=== PATIENT | male | born 1940 | race Caucasian/White ===

== ENCOUNTER → 2018-01-15 | Outpatient (CLI) | payer MEDICARE ==
[~2018-01-15] MED LIST: FINA5TAB4 PO; MUPI15CR9 TP
== END | disposition home or self-care (01) ==
LOC: STAR 08:12
PROVIDERS: ATTEND Urology
DX: Z01.818 Encounter for other preprocedural examination (principal); R33.9 Retention of urine, unspecified; Z87.891 Personal history of nicotine dependence
CPT/HCPCS: 93005

== ENCOUNTER 2018-01-30 05:37 | Inpatient (IN) | payer MEDICARE ==
[~2018-01-30] VITALS: Ht 177.8 cm; Wt 94.5 kg
[2018-01-30] MEDS ORDERED: LACTATED RINGERS 1,000 ML IV SCH (07:46)
[2018-01-30] MEDS ORDERED: CIPROFLOXACIN/PMX 400MG/200ML 200 ML ONE (07:58)
[2018-01-30 08:56] LABS: MICROSCOPIC INDICATED
[2018-01-30] MEDS ORDERED: FENTANYL PF 100 MCG/2ML ONE ×3 (09:25→12:24)
[2018-01-30] MEDS ORDERED: KETOROLAC 30 MG/1 ML ONE (09:25)
[2018-01-30] MEDS ORDERED: CEFAZOLIN 1,000 MG ONE (09:46)
[2018-01-30] MEDS ORDERED: PROPOFOL 10 MG/ML, 20ML ONE (09:46)
[2018-01-30] MEDS ORDERED: DEXAMETHASONE 4 MG/ML, 1ML ONE (09:46)
[2018-01-30] MEDS ORDERED: ONDANSETRON 2MG/ML, 2ML ONE (09:46)
[2018-01-30] MEDS ORDERED: FENTANYL PF 100 MCG/2ML IV PRN (10:00)
[2018-01-30] MEDS ORDERED: OXYcodone 5 MG/5 ML ORAL.SOL UDC PO PRN (10:00)
[2018-01-30] MEDS ORDERED: HYDROmorphone 1 MG/ML, 1ML IV PRN (10:00)
[2018-01-30] MEDS ORDERED: MEPERIDINE/PF 25MG/0.5ML IVPush PRN (10:00)
[2018-01-30] MEDS ORDERED: LABETALOL 5MG/ML, 20ML IV PRN (10:00)
[2018-01-30] MEDS ORDERED: HALOPERIDOL 5 MG/ML IV PRN (10:00)
[2018-01-30] MEDS ORDERED: PROCHLORPERAZINE 5 MG/ML, 2ML IV PRN (10:00)
[2018-01-30] MEDS ORDERED: ACETAMINOPHEN 325 MG TABLET PO PRN (10:00)
[2018-01-30] MEDS ORDERED: DIPHENHYDRAMINE 50 MG/ML, 1ML IVPush PRN (10:00)
[2018-01-30] MEDS ORDERED: hydrALAzine 20 MG/ML, 1ML IV PRN (10:00)
[2018-01-30] MEDS ORDERED: OPIUM/BELLADONNA SUPP.RECT 16.2-60 MG ONE (11:59)
[2018-01-30] MEDS ORDERED: OPIUM/BELLADONNA SUPP.RECT 16.2-60 MG PR ONE (12:00)
[2018-01-30] MEDS ORDERED: OXYcodone 5 MG/5 ML ORAL.SOL UDC ONE (12:24)
[2018-01-30] MEDS ORDERED: PROCHLORPERAZINE 5 MG/ML, 2ML ONE (12:24)
[2018-01-30] MEDS ORDERED: ACETAMINOPHEN 650 MG/20.3 ML UDC ONE (12:24)
[2018-01-30 14:00] VITALS: BP 108/65
[2018-01-30] MEDS ORDERED: OPIUM/BELLADONNA SUPP.RECT 16.2-30 MG PR PRN (14:00)
[2018-01-30] MEDS ORDERED: ONDANSETRON 2MG/ML, 2ML IV PRN (14:00)
[2018-01-30] MEDS: D5%-0.45NACL+KCL 20MEQ 1,000 ML IV SCH (18:36)
[2018-01-30] MEDS ORDERED: CIPROFLOXACIN/PMX 400MG/200ML 200 ML IVPB SCH (19:00)
[2018-01-30 19:05] VITALS: BP 110/58
[2018-01-30] MEDS: CIPROFLOXACIN/PMX 400MG/200ML 200 ML IVPB SCH (21:41)
[2018-01-31 00:11] VITALS: BP 97/56
[2018-01-31] MEDS: D5%-0.45NACL+KCL 20MEQ 1,000 ML IV SCH ×2 (04:45→17:48)
[2018-01-31 05:23] VITALS: BP 106/62
[2018-01-31 06:13] LABS: ANION GAP 8 mmol/L (5-15); CHLORIDE 105 mmol/L (98-107); CREATININE 1.05 mg/dL (0.7-1.3)
[2018-01-31 08:48] VITALS: BP 105/55
[2018-01-31] MEDS: FINASTERIDE 5 MG TABLET PO SCH (09:20)
[2018-01-31] MEDS: CIPROFLOXACIN/PMX 400MG/200ML 200 ML IVPB SCH (09:42)
[2018-01-31 13:54] VITALS: BP 106/61
[2018-01-31 19:55] VITALS: BP 110/55
[2018-02-01 02:00] VITALS: BP 108/82
[2018-02-01] MEDS: D5%-0.45NACL+KCL 20MEQ 1,000 ML IV SCH ×2 (03:47→13:00)
[2018-02-01 04:43] LABS: ANION GAP 7 mmol/L (5-15); CALCIUM 7.8 mg/dL (8.5-10.1); CHLORIDE 109 mmol/L (98-107)
[2018-02-01 07:59] VITALS: BP 114/65
[2018-02-01] MEDS: FINASTERIDE 5 MG TABLET PO SCH (09:34)
[2018-02-01 14:13] VITALS: BP 121/70
== END 2018-02-01 16:57 | disposition home or self-care (01) | DRG 713 ==
LOC: OUT 05:37 → 4NOR 13:10 → OUT 20:58 → OBSVTOIN 20:58 → 4NOR 20:58 → DCLOUNGE 02-01 16:47
PROVIDERS: ADMIT Urology; ATTEND Urology
PROC: 0T9B70Z Drainage of Bladder with Drainage Device, Via Natural or Artificial Opening (ICD-10-PCS; 2018-01-30)
PROC: 0TCB8ZZ Extirpation of Matter from Bladder, Via Natural or Artificial Opening Endoscopic (ICD-10-PCS; 2018-01-30)
PROC: 0VT08ZZ Resection of Prostate, Via Natural or Artificial Opening Endoscopic (ICD-10-PCS; principal; 2018-01-30 09:30)
DX: C61 Malignant neoplasm of prostate (principal); N39.0 Urinary tract infection, site not specified; N32.0 Bladder-neck obstruction; R31.9 Hematuria, unspecified; N40.1 Benign prostatic hyperplasia with lower urinary tract symptoms; R33.8 Other retention of urine; Z87.891 Personal history of nicotine dependence
CPT/HCPCS: 36415; 80048; 81001; 85014; 85018; 87077; 87086; 87186; 88305; G0378; J0690; J0744; J1100; J1885; J2405; J2704; J3010; J0780; J3480

== ENCOUNTER 2018-03-01 22:19 | Inpatient (IN) | payer MEDICARE ==
[~2018-03-01] VITALS: Ht 177.8 cm; Wt 92.9 kg
[2018-03-01 22:58] LABS: BASOPHILS # (AUTO) 0.09 x10^3/uL (0-0.1); BASOPHILS % (AUTO) 1 % (0-1); EOSINOPHILS # (AUTO) 0.16 x10^3/uL (0-0.4); EOSINOPHILS % (AUTO) 2 % (1-7); LYMPHOCYTES # (AUTO) 1.64 x10^3/uL (1-3.4); LYMPHOCYTES % (AUTO) 21 % (22-44); MD NO; MEAN CORPUSCULAR HEMOGLOBIN 32.6 pg (27.5-34.5); MEAN CORPUSCULAR HGB CONC 33.6 g/dL (33.2-36.2); MEAN CORPUSCULAR VOLUME 97.1 fL (81-97); MEAN PLATELET VOLUME 7.8 fL (7.4-10.4); MONOCYTES # (AUTO) 0.71 x10^3/uL (0.2-0.8); MONOCYTES % (AUTO) 9 % (2-9); NEUTROPHILS # (AUTO) 5.16 x10^3/uL (1.8-6.8); NEUTROPHILS % (AUTO) 67 % (42-75); PLATELET COUNT 296 x10^3/uL (130-400); RED BLOOD COUNT 4.03 x10^6/uL (4.38-5.82); RED CELL DISTRIBUTION WIDTH 14.1 % (9.4-14.8)
[2018-03-01 23:08] LABS: ALANINE AMINOTRANSFERASE 27 U/L (12-78); ALBUMIN 3.3 g/dL (3.4-5.0); ANION GAP 9 mmol/L (5-15); CALCIUM 8.5 mg/dL (8.5-10.1); CHLORIDE 108 mmol/L (98-107)
[2018-03-01 23:10] LABS: ALKALINE PHOSPHATASE 96 U/L (45-117); BILIRUBIN,TOTAL 0.3 mg/dL (0.2-1.0); TOTAL PROTEIN 6.4 g/dL (6.4-8.2)
[2018-03-01 23:32] LABS: INTERNATIONAL NORMALIZED RATIO 1.02 (0.93-1.1); PROTHROMBIN TIME 10.6 Seconds (9.6-11.5)
[2018-03-02] LABS: CULTURE INDICATED? YES; MICROSCOPIC INDICATED
[2018-03-02] MEDS ORDERED: OMNIPAQUE 350 MG/ML, 100ML BOTTLE ONE (00:38)
[2018-03-02] MEDS ORDERED: CEFTRIAXONE PMX 1GM/50ML 50 ML IV ONE (02:30)
[2018-03-02] MEDS ORDERED: CEFTRIAXONE PMX 1GM/50ML 50 ML ONE (02:37)
[2018-03-02] MEDS ORDERED: ONDANSETRON 2MG/ML, 2ML IVPush PRN ×2 (03:00→06:00)
[2018-03-02] MEDS ORDERED: MORPHINE SULFATE 4 MG/ML, 1ML IVPush PRN ×2 (03:00→09:30)
[2018-03-02 04:25] VITALS: BP 131/75
[2018-03-02] MEDS ORDERED: ACETAMINOPHEN 325 MG TABLET PO PRN ×2 (06:00→09:30)
[2018-03-02] MEDS ORDERED: OPIUM/BELLADONNA SUPP.RECT 16.2-30 MG PR SCH (06:00)
[2018-03-02] MEDS ORDERED: hydrALAzine 20 MG/ML, 1ML IVPush PRN (06:00)
[2018-03-02] MEDS: CEFTRIAXONE PMX 1GM/50ML 50 ML IV SCH (06:00)
[2018-03-02] MEDS: HYDROmorphone 2 MG/ML, 1ML IVPush PRN ×3 (06:15→09:47)
[2018-03-02 07:19] VITALS: BP 162/89
[2018-03-02] MEDS: SODIUM CHLORIDE 0.9% 1,000 ML IV SCH ×3 (08:26→20:57)
[2018-03-02] MEDS ORDERED: FENTANYL PF 250 MCG/5ML ONE (09:02)
[2018-03-02] MEDS ORDERED: MIDAZOLAM 1 MG/ML, 2ML ONE (09:02)
[2018-03-02] MEDS ORDERED: PROPOFOL 10 MG/ML, 20ML ONE (09:04)
[2018-03-02] MEDS ORDERED: SODIUM CHLORIDE 0.9% PF 10ML ONE (09:05)
[2018-03-02] MEDS ORDERED: CEFAZOLIN 1,000 MG ONE ×2 (09:05→09:06)
[2018-03-02] MEDS ORDERED: OXYcodone 5 MG/5 ML ORAL.SOL UDC PO PRN (09:30)
[2018-03-02] MEDS ORDERED: PROMETHAZINE 25 MG/ML, 1ML IM PRN ×2 (09:30)
[2018-03-02] MEDS ORDERED: PROMETHAZINE 12.5 MG SUPP PR PRN (09:30)
[2018-03-02] MEDS ORDERED: ONDANSETRON 2MG/ML, 2ML IV PRN (09:30)
[2018-03-02] MEDS ORDERED: ONDANSETRON ODT 8 MG PO PRN (09:30)
[2018-03-02] MEDS ORDERED: MEPERIDINE/PF 25MG/0.5ML IVPush PRN (09:30)
[2018-03-02] MEDS ORDERED: hydrALAzine 20 MG/ML, 1ML IV PRN (09:30)
[2018-03-02] MEDS ORDERED: PROMETHAZINE 25 MG SUPP PR PRN (09:30)
[2018-03-02] MEDS ORDERED: LABETALOL 5MG/ML, 20ML IV PRN (09:30)
[2018-03-02] MEDS ORDERED: FENTANYL PF 100 MCG/2ML IV PRN (09:30)
[2018-03-02] MEDS ORDERED: HYDROmorphone 1 MG/ML, 1ML IV PRN (09:30)
[2018-03-02] MEDS ORDERED: PROMETHAZINE 25 MG/ML, 1ML IV PRN (09:30)
[2018-03-02] MEDS: FINASTERIDE 5 MG TABLET PO SCH (12:08)
[2018-03-02 15:47] VITALS: BP 118/55
[2018-03-02 20:04] VITALS: BP 107/51
[2018-03-03 00:39] VITALS: BP 108/60
[2018-03-03] MEDS: CEFTRIAXONE PMX 1GM/50ML 50 ML IV SCH (02:19)
[2018-03-03 04:50] VITALS: BP 107/63
[2018-03-03 05:37] LABS: ANION GAP 5 mmol/L (5-15); CHLORIDE 109 mmol/L (98-107)
[2018-03-03 05:38] LABS: BASOPHILS # (AUTO) 0.05 x10^3/uL (0-0.1); BASOPHILS % (AUTO) 1 % (0-1); CREATININE 0.85 mg/dL (0.7-1.3); EOSINOPHILS # (AUTO) 0.12 x10^3/uL (0-0.4); EOSINOPHILS % (AUTO) 2 % (1-7); LYMPHOCYTES # (AUTO) 1.59 x10^3/uL (1-3.4); LYMPHOCYTES % (AUTO) 20 % (22-44); MD NO; MEAN CORPUSCULAR HEMOGLOBIN 32.4 pg (27.5-34.5); MEAN CORPUSCULAR HGB CONC 33.5 g/dL (33.2-36.2); MEAN CORPUSCULAR VOLUME 96.6 fL (81-97); MEAN PLATELET VOLUME 7.8 fL (7.4-10.4); MONOCYTES # (AUTO) 0.63 x10^3/uL (0.2-0.8); MONOCYTES % (AUTO) 8 % (2-9); NEUTROPHILS # (AUTO) 5.67 x10^3/uL (1.8-6.8); NEUTROPHILS % (AUTO) 70 % (42-75); PLATELET COUNT 227 x10^3/uL (130-400); RED BLOOD COUNT 3.24 x10^6/uL (4.38-5.82)
[2018-03-03 07:19] VITALS: BP 106/63
[2018-03-03] MEDS: SODIUM CHLORIDE 0.9% 1,000 ML IV SCH ×2 (07:51→16:13)
[2018-03-03] MEDS: FINASTERIDE 5 MG TABLET PO SCH (08:39)
[2018-03-03 15:30] VITALS: BP 109/48
[2018-03-03 20:25] VITALS: BP 112/55
[2018-03-04 02:15] VITALS: BP 155/77
[2018-03-04] MEDS: CEFTRIAXONE PMX 1GM/50ML 50 ML IV SCH (03:05)
[2018-03-04 07:40] VITALS: BP 129/65
[2018-03-04] MEDS: BISACODYL 10 MG SUPP PR SCH (09:00)
[2018-03-04] MEDS: POLYETHYLENE GLYCOL 17 GM PACKET PO SCH (09:58)
[2018-03-04] MEDS: FINASTERIDE 5 MG TABLET PO SCH (09:58)
[2018-03-04 13:32] VITALS: BP 111/61
[2018-03-04] MEDS: HYDROmorphone 2 MG/ML, 1ML IVPush PRN (17:32)
[2018-03-04] MEDS ORDERED: OPIUM/BELLADONNA SUPP.RECT 16.2-60 MG PR SCH (18:00)
[2018-03-04] MEDS ORDERED: OPIUM/BELLADONNA SUPP.RECT 16.2-30 MG ONE (18:26)
[2018-03-04 18:32] VITALS: BP 140/63
[2018-03-05 02:15] VITALS: BP 133/75
[2018-03-05 07:02] VITALS: BP 127/68
[2018-03-05] MEDS: POLYETHYLENE GLYCOL 17 GM PACKET PO SCH (08:01)
[2018-03-05] MEDS: FINASTERIDE 5 MG TABLET PO SCH (08:01)
[2018-03-05] MEDS: BISACODYL 10 MG SUPP PR SCH (08:02)
[2018-03-05] MEDS: BICALUTAMIDE 50 MG TABLET PO SCH (09:23)
[2018-03-05 14:45] VITALS: BP 127/63
[2018-03-05] MEDS: OXYBUTYNIN CHLORIDE 5 MG TABLET PO SCH ×2 (16:14→20:50)
[2018-03-05 19:36] VITALS: BP 113/63
[2018-03-06 02:30] VITALS: BP 134/71
[2018-03-06 05:00] LABS: BASOPHILS # (AUTO) 0.05 x10^3/uL (0-0.1); BASOPHILS % (AUTO) 1 % (0-1); EOSINOPHILS # (AUTO) 0.33 x10^3/uL (0-0.4); EOSINOPHILS % (AUTO) 4 % (1-7); LYMPHOCYTES # (AUTO) 1.78 x10^3/uL (1-3.4); LYMPHOCYTES % (AUTO) 23 % (22-44); MD NO; MEAN CORPUSCULAR HEMOGLOBIN 32.6 pg (27.5-34.5); MEAN CORPUSCULAR HGB CONC 33.4 g/dL (33.2-36.2); MEAN CORPUSCULAR VOLUME 97.4 fL (81-97); MEAN PLATELET VOLUME 7.6 fL (7.4-10.4); MONOCYTES # (AUTO) 0.65 x10^3/uL (0.2-0.8); MONOCYTES % (AUTO) 8 % (2-9); NEUTROPHILS # (AUTO) 5.05 x10^3/uL (1.8-6.8); NEUTROPHILS % (AUTO) 64 % (42-75); PLATELET COUNT 214 x10^3/uL (130-400); RED BLOOD COUNT 2.84 x10^6/uL (4.38-5.82); RED CELL DISTRIBUTION WIDTH 14.5 % (9.4-14.8)
[2018-03-06 07:35] VITALS: BP 137/87
[2018-03-06] MEDS: FINASTERIDE 5 MG TABLET PO SCH (08:26)
[2018-03-06] MEDS: OXYBUTYNIN CHLORIDE 5 MG TABLET PO SCH ×3 (08:26→20:05)
[2018-03-06] MEDS: BICALUTAMIDE 50 MG TABLET PO SCH (08:26)
[2018-03-06] MEDS: BISACODYL 10 MG SUPP PR SCH (08:27)
[2018-03-06] MEDS: POLYETHYLENE GLYCOL 17 GM PACKET PO SCH (08:28)
[2018-03-06 12:34] VITALS: BP 132/64
[2018-03-06 18:15] LABS: BASOPHILS # (AUTO) 0.08 x10^3/uL (0-0.1); BASOPHILS % (AUTO) 1 % (0-1); EOSINOPHILS # (AUTO) 0.26 x10^3/uL (0-0.4); EOSINOPHILS % (AUTO) 3 % (1-7); LYMPHOCYTES # (AUTO) 1.91 x10^3/uL (1-3.4); LYMPHOCYTES % (AUTO) 25 % (22-44); MD NO; MEAN CORPUSCULAR HEMOGLOBIN 33.3 pg (27.5-34.5); MEAN CORPUSCULAR HGB CONC 34.1 g/dL (33.2-36.2); MEAN CORPUSCULAR VOLUME 97.7 fL (81-97); MONOCYTES # (AUTO) 0.75 x10^3/uL (0.2-0.8); MONOCYTES % (AUTO) 10 % (2-9); NEUTROPHILS # (AUTO) 4.73 x10^3/uL (1.8-6.8); NEUTROPHILS % (AUTO) 61 % (42-75); PLATELET COUNT 245 x10^3/uL (130-400); RED BLOOD COUNT 2.93 x10^6/uL (4.38-5.82); RED CELL DISTRIBUTION WIDTH 14.3 % (9.4-14.8)
[2018-03-06 19:19] VITALS: BP 120/66
[2018-03-07 02:16] VITALS: BP 118/71
[2018-03-07 07:10] VITALS: BP 102/56
[2018-03-07] MEDS: BISACODYL 10 MG SUPP PR SCH (09:00)
[2018-03-07] MEDS: BICALUTAMIDE 50 MG TABLET PO SCH ×2 (09:00→17:14)
[2018-03-07] MEDS: POLYETHYLENE GLYCOL 17 GM PACKET PO SCH (09:00)
[2018-03-07] MEDS: OXYBUTYNIN CHLORIDE 5 MG TABLET PO SCH ×2 (09:02→17:13)
[2018-03-07] MEDS: FINASTERIDE 5 MG TABLET PO SCH (09:02)
[2018-03-07] MEDS ORDERED: OXYB5TAB7 PO (13:07)
[2018-03-07] MEDS ORDERED: BICA50TA5 PO (13:07)
[2018-03-07 13:50] VITALS: BP 125/65
== END 2018-03-07 17:17 | disposition home or self-care (01) | DRG 669 ==
LOC: ED 22:49 → EDIP 03-02 02:56 → 4NOR 03-02 04:00
PROVIDERS: ADMIT Hospitalist; ATTEND Hospitalist
PROC: 0T5C8ZZ Destruction of Bladder Neck, Via Natural or Artificial Opening Endoscopic (ICD-10-PCS; 2018-03-02)
PROC: 0TCC8ZZ Extirpation of Matter from Bladder Neck, Via Natural or Artificial Opening Endoscopic (ICD-10-PCS; 2018-03-02)
PROC: 0TBC8ZX Excision of Bladder Neck, Via Natural or Artificial Opening Endoscopic, Diagnostic (ICD-10-PCS; principal; 2018-03-02 09:00)
PROC: 3C1ZX8Z Irrigation of Indwelling Device using Irrigating Substance, External Approach (ICD-10-PCS; 2018-03-04)
DX: N02.9 Recurrent and persistent hematuria with unspecified morphologic changes (principal); D62 Acute posthemorrhagic anemia; N40.0 Benign prostatic hyperplasia without lower urinary tract symptoms; K80.20 Calculus of gallbladder without cholecystitis without obstruction; N32.89 Other specified disorders of bladder; Z85.038 Personal history of other malignant neoplasm of large intestine; Z90.79 Acquired absence of other genital organ(s); I78.8 Other diseases of capillaries; N30.91 Cystitis, unspecified with hematuria; Z85.46 Personal history of malignant neoplasm of prostate
CPT/HCPCS: 36415; 74177; 76770; 76857; 80048; 80053; 81001; 83735; 84100; 85025; 85610; 87086; 88305; 99285; G0378; J0690; J0696; J1170; J2250; J2704; J3010; Q9967; J7030